=== PATIENT | female | born 1950 | race Native Hawaiian/Other Pacific Islander ===

== ENCOUNTER 2018-09-23 14:17 | Emergency (ER) | payer BC ==
[~2018-09-23] VITALS: Ht 162.6 cm; Wt 75.3 kg
[2018-09-23 15:46] VITALS: BP 135/53; TEMP 97.7
== END 2018-09-23 15:46 | disposition home or self-care (01) ==
LOC: ED 14:17
PROC: 0HQFXZZ Repair Right Hand Skin, External Approach (ICD-10-PCS; principal; 2018-09-23)
DX: S61.411A Laceration without foreign body of right hand, initial encounter (principal); X58.XXXA Exposure to other specified factors, initial encounter
CPT/HCPCS: 90715; 96372; 99283

== ENCOUNTER 2018-10-03 11:11 | Emergency (ER) | payer BC ==
[~2018-10-03] VITALS: Ht 162.6 cm; Wt 75.3 kg
[2018-10-03 11:17] VITALS: BP 135/68; TEMP 97.7
== END 2018-10-03 11:50 | disposition home or self-care (01) ==
LOC: ED 11:11
DX: Z48.02 Encounter for removal of sutures (principal)